=== PATIENT | female | born 1960 | race Caucasian/White ===

== ENCOUNTER 2017-02-02 12:29 | Emergency (ER) | payer OTHER ==
[~2017-02-02 12:29] MED LIST: AUGMENTIN 500 M1 TAB PO
--- NOTE | 2017-02-02 12:35 | ED ANIMAL BITE/WOUND CHECK ---
History of Present Illness General Chief Complaint: Animal/Insect Bite Stated Complaint: BIBA FOR DOG BITE TO RIGHT HAND Source: patient Exam Limitations: no limitations Vital Signs & Intake/Output Vital Signs & Intake/Output Vital Signs Date Time Temp Pulse Resp B/P Pulse O2 O2 Flow FiO2 Ox Delivery Rate 02/02 1416 97.1 72 20 141/84 95 Room Air 02/02 1232 96.8 95 18 166/101 99 Room Air Allergies Coded Allergies: oxycodone (Intermediate, NAUSEA 02/02/17) Reconcile Medications AMOXICILLIN/POTASSIUM CLAV (Augmentin 500-125 Tablet) 500 MG/125 MG TAB 1 TAB PO BID PNA Amoxicillin/Potassium Clav (Augmentin 875-125 Tablet) 875 MG-125 MG TABLET 1 TAB PO BID PRN DOG BITE Escitalopram Oxalate 10 MG TABLET 1 TAB PO DAILY MENTAL HEALTH (Reported) Hydrocodone/Acetaminophen (Vicodin 5-300 MG Tablet) 5 MG-300 MG TABLET 1 TAB PO BID PRN PAIN Ranitidine HCl 300 MG TABLET 1 TAB PO QPM PEPTIC ULCERS (Reported) Rizatriptan Benzoate (Maxalt) 10 MG TABLET 1 TAB PO AD HEADACHES (Reported) Trazodone HCl 50 MG TABLET 1 TAB PO QPM INSOMNIA (Reported) Triage Nurses Notes Reviewed? yes Injury Environment: home Is Injury an Animal Bite? Yes Animal Type: dog Context of Animal Attack: animals fighting Appearance of Animal: appeared ill Animal Immunization Status: up to date Severity of Attack: bitten Severity: severe Severity Numbers: 8 HPI: The patient is a 56-year-old female who presents emergency room stating that today while her TWO dogs were fighting each other the patient tried to separate the dogs however patient was bit to the right aspect of her hands and finger resulting acute onset of pain bleeding and deformity noted to the right third digit of her finger. Patient was brought in by ambulance. Her tetanus is unknown. Dogs immunizations are up-to-date. Patient is left-handed denies any wrist pain Past History Travel History Traveled to [place] past 21 day No Medical History Any Pertinent Medical History? see below for history Psychiatric: anxiety Influenza Vaccine: 08/05/13 Surgical History Surgical History: non-contributory Psychosocial History What is your primary language Surinamese Family History Hx Contributory? No Review of Systems Review of Systems Constitutional: Reports: no symptoms. EENTM: Reports: no symptoms. Respiratory: Reports: no symptoms. Cardiovascular: Reports: no symptoms. GI: Reports: no symptoms. Genitourinary: Reports: no symptoms. Musculoskeletal: Reports: see HPI. Skin: Reports: see HPI. Neurological/Psychological: Reports: no symptoms. Hematologic/Endocrine: Reports: see HPI, bleeding. Immunologic/Allergic: Reports: no symptoms. All Other Systems: Reviewed and Negative Physical Exam Physical Exam General Appearance: no apparent distress, comfortable Comments: Well-developed well-nourished no apparent distress. HEENT: Atraumatic, extraocular motion intact Neck: Supple, no lymphadenopathy Back: Nontender Respiratory: No respiratory distress Right wrist nontender full active range of motion Neuro: Alert and oriented x3 Psych: Mood affect normal, normal memory normal judgment. Diagram Hands, Dorsum: 1) Noted superficial puncture wound approximately 3 mm no active bleeding 2) Deformity noted to PIP distal phalanx dermatomes intact capillary refill intact 3) Noted skin avulsion no active bleeding Progress Differential Diagnosis: abscess, cellulitis, joint infection, tenosysnovitis, FOREIGN BODY TENDON RUPTURE DISLOCATION FRACTURE Plan of Care: Orders Procedure Date/time Status XRY-FINGERS, RIGHT 02/03 1344 Active PATIENT: TERE ALCALA PRESENT AGE: 56 PATIENT ACCOUNT NO: [id number] : 60 LOCATION: [facility] ORDERING PHYSICIAN: CORKY COX SERVICE DATE: 02/02/17 EXAM TYPE: RAD - XRY-HAND, RIGHT EXAMINATION: XR HAND, RIGHT CLINICAL INFORMATION: Pain. Dislocation of PIP joint third digit COMPARISON: None TECHNIQUE: Right hand, 3 views FINDINGS: There is anterior dislocation of the PIP joint of the middle finger without identification of an acute fracture. The evaluation of the base of the middle phalanx is suboptimal due to the osseous overlap on all radiographic projections. There is ulnar deviation of the dislocated digit. Otherwise, unremarkable exam. IMPRESSION: Dislocated PIP joint of the third digit without evidence of fracture. DICTATED BY: SAMAN BROOKS MD DATE/TIME DICTATED:02/02/171312 LAUNDRY MACHINE OPERATOR:AKOSUA DATE/TIME TRANSCRIBED:02/02/171312 After the reduction was performed peroxide and sterile water were cleaned to the wounds bacitracin and bandage was applied I applied a metal finger splint to the right third digit of hand PRE and post neurovascular was intact. Status post reduction film x-rays showed alignment of PIP Upon discharge patient looks well no apparent distress and will comply with discharge instructions and had no questions (GEORGE COX,CORKY) Diagnostic Imaging: Viewed by Me: Radiology Read. Radiology Impression: acute abnormality Comments: PATIENT: TERE ALCALA PRESENT AGE: 56 PATIENT ACCOUNT NO: [id number] : 60 LOCATION: ER ORDERING PHYSICIAN: CORKY COX SERVICE DATE: 02/02/17 EXAM TYPE: RAD - XRY-HAND, RIGHT EXAMINATION: XR HAND, RIGHT CLINICAL INFORMATION: Pain. Dislocation of PIP joint third digit COMPARISON: None TECHNIQUE: Right hand, 3 views FINDINGS: There is anterior dislocation of the PIP joint of the middle finger without identification of an acute fracture. The evaluation of the base of the middle phalanx is suboptimal due to the osseous overlap on all radiographic projections. There is ulnar deviation of the dislocated digit. Otherwise, unremarkable exam. IMPRESSION: Dislocated PIP joint of the third digit without evidence of fracture. PATIENT: TERE ALCALA PRESENT AGE: 56 PATIENT ACCOUNT NO: [id number] : 60 LOCATION: [facility] ORDERING PHYSICIAN: CORKY COX SERVICE DATE: 02/02/17 EXAM TYPE: RAD - XRY-FINGERS, RIGHT EXAMINATION: XR FINGER, RIGHT CLINICAL INFORMATION: Status post reduction of the right third finger. COMPARISON: Plain films of the right hand 02/02/2017. TECHNIQUE: Single AP view of the right hand as well as oblique and lateral views of the right third finger. FINDINGS: Interval reduction of the right third finger at the level of the proximal interphalangeal joint. No visible fracture of the digit. There is moderate soft tissue swelling surrounding the digit. IMPRESSION: Successful interval reduction of the right third finger at the level of the proximal interphalangeal joint. No visible fracture of the digit. Moderate surrounding soft tissue swelling. Departure Departure Disposition: HOME OR SELF CARE Condition: Stable Clinical Impression Primary Impression: Dog bite of right hand Secondary Impressions: Dislocation of finger PIP joint, Laceration of hand Referrals: PAOLO JACOBS,SADIE Huynh (PCP/Family) Additional Instructions: As discussed begin icing the area directly 20 minutes every 2 hours begin over- the-counter ibuprofen for pain and inflammation and begin the prescription of Vicodin for breakthrough pain relief. Begin to apply bacitracin to the area of the wounds once a day for the following 4 days. Begin the prescription of Augmentin as directed for the full course. Prescription is awaiting a FREDIS Sneed. Next week follow-up with your established orthopedic doctor. Continue to use the finger splint applied to in the emergency room on at all times until you follow up with the orthopedic doctor. If worsening symptoms of fever chills pain swelling or signs of infection and concur return to emergency room immediately. Departure Forms: Customer Survey General Discharge Information Prescriptions: Current Visit Scripts Amoxicillin/Potassium Clav (Augmentin 875-125 Tablet) 1 TAB PO BID PRN DOG BITE #14 TAB Hydrocodone/Acetaminophen (Vicodin 5-300 MG Tablet) 1 TAB PO BID PRN PAIN #8 TAB Procedures Joint Reduction Joint Reduction Site: RIGHT THIRD DIGIT OF FINGER Reduction Attempts: 1 Pre-Procedure NV Exam: Yes Post-Procedure NV Exam: Yes Post Joint Reduction Film: joint reduced, joint not reduced, no fracture seen Progress: Using sterile technique of Betadine and I used 8 mL of 1% lidocaine for digital block of right digit of hand and which one attempt reduced the finger to the dislocation site of the PIP joint. Patient tolerated well PRE and post neurovascular was intact.
[2017-02-02] MEDS ORDERED: ESCITALOPRAM OX10 MG PO (12:43)
[2017-02-02] MEDS ORDERED: TRAZODONE HCL50 M1 PO (12:43)
[2017-02-02] MEDS ORDERED: RANITIDINE HCL300 M1 PO (12:43)
[2017-02-02] MEDS ORDERED: MAXALT10 M1 PO (12:44)
--- NOTE | 2017-02-02 13:19 | RADIOLOGY REPORT ---
EXAMINATION: XR HAND, RIGHT CLINICAL INFORMATION: Pain. Dislocation of PIP joint third digit COMPARISON: None TECHNIQUE: Right hand, 3 views FINDINGS: There is anterior dislocation of the PIP joint of the middle finger without identification of an acute fracture. The evaluation of the base of the middle phalanx is suboptimal due to the osseous overlap on all radiographic projections. There is ulnar deviation of the dislocated digit. Otherwise, unremarkable exam. IMPRESSION: Dislocated PIP joint of the third digit without evidence of fracture.
[2017-02-02] MEDS ORDERED: AUGMENTIN 875-1 EACH PO (13:59)
[2017-02-02] MEDS ORDERED: VICODIN 5-3001 EACH PO (13:59)
[2017-02-02 14:16] VITALS: BP 141/84
--- NOTE | 2017-02-02 14:43 | RADIOLOGY REPORT ---
EXAMINATION: XR FINGER, RIGHT CLINICAL INFORMATION: Status post reduction of the right third finger. COMPARISON: Plain films of the right hand 02/02/2017. TECHNIQUE: Single AP view of the right hand as well as oblique and lateral views of the right third finger. FINDINGS: Interval reduction of the right third finger at the level of the proximal interphalangeal joint. No visible fracture of the digit. There is moderate soft tissue swelling surrounding the digit. IMPRESSION: Successful interval reduction of the right third finger at the level of the proximal interphalangeal joint. No visible fracture of the digit. Moderate surrounding soft tissue swelling.
== END 2017-02-02 14:21 ==
LOC: ERH 12:29
DX: S63.284A Dislocation of proximal interphalangeal joint of right ring finger, initial encounter (principal); S61.411A Laceration without foreign body of right hand, initial encounter; W54.0XXA Bitten by dog, initial encounter; Y93.89 Activity, other specified; Y92.9 Unspecified place or not applicable
CPT/HCPCS: 73130-RT; 73140-RT; 90471; 90714